=== PATIENT | male | born 1985 | race African-American/Black ===

== ENCOUNTER 2017-05-04 13:07 | Emergency (ER) | payer SELFPAY ==
[2017-05-04] MEDS ORDERED: Aspirin Low Dose CHEW TAB* 81 MG PO ONE (14:01)
--- NOTE | 2017-05-04 14:22 | RAD ---
HISTORY: Chest pain COMPARISONS: July 01, 2014 VIEWS:1: Single frontal portable view of the chest at 2:20 PM FINDINGS: LINES AND TUBES: None. CARDIOMEDIASTINAL SILHOUETTE: The cardiomediastinal silhouette is normal for portable technique. PLEURA: The costophrenic angles are sharp. No pleural abnormalities are noted. LUNG PARENCHYMA: The lungs are clear. ABDOMEN: The upper abdomen is clear. There is no subphrenic gas. BONES AND SOFT TISSUES: No bone or soft tissue abnormalities are noted. IMPRESSION: NO ACTIVE CARDIOPULMONARY DISEASE.
[2017-05-04 15:06] LABS: Hematocrit 45 % (42-52); Hemoglobin 14.6 g/dl (14.0-18.0); Mean Corpuscular HGB Conc 32 g/dl (31-36); Mean Corpuscular Hemoglobin 29 pg (27-31); Mean Corpuscular Volume 90 fL (80-94); Mean Platelet Volume 12 um3 (7.4-10.4); Red Cell Distribution Width 13 % (10.5-15); White Blood Count 8.9 10^3/ul (3.5-10.8)
[2017-05-04] MEDS ORDERED: Nitroglycerin TAB 0.4 MG* 0.4 MG TAB SL ONE (15:10)
[2017-05-04 15:22] LABS: Albumin 4.5 g/dL (3.2-5.2); BUN/Creatinine Ratio 13.2 (8-20); Calcium 9.4 mg/dL (8.6-10.3); EGFR African American 82.5 (>60); EGFR Non-African American 64.1 (>60); Globulin 4.4 g/dL (2-4); Potassium 4.1 mmol/L (3.5-5.0); Total Bilirubin 0.7 mg/dL (0.2-1.0); Total Protein 8.9 g/dL (6.4-8.9)
[2017-05-04 16:49] VITALS: BP 123/90
--- NOTE | 2017-05-17 15:15 | ED ---
Neymar Mcbride Benjamin, scribed for Rosalino Sanchez MD on 05/04/17 at 1438 . HPI Chest Pain - HPI Summary HPI Summary: 32yo male c/o sharp left anterior chest pain on and off since 2 days ago. Pt also reports pain radiating to left arm, left flank and left neck. Pt was smoking a cigarette at the time of onset. Pain was 7/10 initially but now its a 2/10 dull ache. Moving his arm does not affect his pain, and pt denies SOB, rash, or any recent stress. FHx of DM, prostate, lungs, liver CA, and CVA. Pt is a smoker. PT doesnt have a PCP and hasn't follow up wit [facility] doctor for a long time. - History of Current Complaint Chief Complaint: EDChestPainROMI Time Seen by Provider: 05/04/17 13:22 Hx Obtained From: Patient Onset/Duration: Started Days Ago - 2 days, Still Present Timing: Intermittent Initial Severity: Moderate Current Severity: Mild Pain Intensity: 8 Pain Scale Used: 0-10 Numeric Chest Pain Location: Left Anterior Chest Pain Radiates: Yes Chest Pain Radiates To:: Flank - left, Shoulder - left, Arm - left, Jaw - left Character: Dull/Aching - now, Sharp/Stabbing - at onset Aggravating Factor(s): Nothing Alleviating Factor(s): Nothing Associated Signs and Symptoms: Positive: Chest Pain. Negative: Shortness of Breath, Fever, Chills - Allergy/Home Medications Allergies/Adverse Reactions: Allergies Allergy/AdvReac Type Severity Reaction Status Date / Time Sulfamethoxazole Allergy Intermediate Stomach Verified 03/23/16 17:26 w/Trimethoprim Cramps [From Bactrim] Doxycycline Allergy Nausea Verified 03/23/16 17:26 PMH/Surg Hx/FS Hx/Imm Hx Respiratory History: Reports: Other Respiratory Problems/Disorders - BRONCHITIS Psychiatric History: Denies: Hx Eating Disorder, Hx of Violent Episodes Against Others - Immunization History Date of Tetanus Vaccine: Unknown Infectious Disease History: Denies: Traveled Outside the [place] in Last 30 Days - Family History Known Family History: Positive: Hypertension, Diabetes, Other - HLD, Kidney Failure. lung, prostate CA, CVA - Social History Occupation: Employed Full-time Lives: Alone Alcohol Use: Occasionally Alcohol Amount: depends on stress Substance Use Type: Reports: None Substance Use Comment - Amount & Last Used: used today Hx Tobacco Use: Yes - Smokes about a quarter pack per day. Smoking Status (MU): Current Every Day Smoker - smokes quarter pack per day Type: Cigarettes Amount Used/How Often: 1/2 PPD Length of Time of Smoking/Using Tobacco: 10YRS Have You Smoked in the Last Year: Yes Review of Systems Negative: Fever, Chills Negative: Erythema Negative: Sore Throat Negative: Cough Negative: Abdominal Pain, Nausea Negative: dysuria, hematuria Negative: Edema Negative: Rash Neurological: Other - negative - dizziness Psychological: Normal All Other Systems Reviewed And Are Negative: Yes Physical Exam Triage Information Reviewed: Yes Vital Signs On Initial Exam: Initial Vitals Temp Pulse Resp BP Pulse Ox 98.3 F 95 20 123/82 98 05/04/17 13:09 05/04/17 13:09 05/04/17 13:09 05/04/17 13:09 05/04/17 13:09 Vital Signs Reviewed: Yes Appearance: Positive: Well-Appearing, Pain Distress - mild, Obese. Negative: No Pain Distress Skin: Positive: Warm, Skin Color Reflects Adequate Perfusion Head/Face: Positive: Normal Head/Face Inspection Eyes: Positive: Conjunctiva Clear ENT: Positive: Normal ENT inspection Respiratory/Lung Sounds: Positive: Clear to Auscultation, Breath Sounds Present. Negative: Rales, Rhonchi, Stridor, Wheezes Cardiovascular: Positive: RRR, Pulses are Symmetrical in both Upper and Lower Extremities, Other - No reproducible tenderness in chest. Negative: Murmur Abdomen Description: Positive: Nontender, Soft. Negative: Distended, Guarding Musculoskeletal: Positive: Strength/ROM Intact. Negative: Edema Left, Edema Right Neurological: Positive: Sensory/Motor Intact, Alert, Oriented to Person Place, Time Psychiatric: Positive: Affect/Mood Appropriate Diagnostics - Vital Signs Vital Signs Temp Pulse Resp BP Pulse Ox 05/04/17 14:28 98.9 F 98 16 126/80 97 05/04/17 13:09 98.3 F 95 20 123/82 98 - Laboratory Result Diagrams: 05/04/17 14:44 05/04/17 14:44 Lab Statement: Any lab studies that have been ordered have been reviewed, and results considered in the medical decision making process. - Radiology CXR Xray Interpretation: No Acute Changes Radiology Interpretation Completed By: Radiologist - EKG 1317 Cardiac Rate: NL - 87bpm EKG Rhythm: Sinus Rhythm EKG Interpretation: normal early repol. pattern. No STEMI Chest Pain Course/Dx - Course Course Of Treatment: Reviewed pts medication and allergy lists. Discussed with Dr. Goldsmith (hospitalist) at 16:[address] Goldsmith will admit the pt. Pt wants to leave AMA. He understands the risks, including possible . - Diagnoses Provider Diagnoses: Chest pain of uncertain etiology, early repolarization pattern in heart - Provider Notifications Instructed by Provider To: Other - AMA Discharge - Discharge Plan Condition: Stable Disposition: AGAINST MEDICAL ADVICE Referrals: No Primary Care Phys,NOPCP [Primary Care Provider] - Additional Instructions: RETURN TO THE EMERGENCY DEPARTMENT FOR CHANGING OR WORSENING SYMPTOMS. The documentation as recorded by the Neymar guevara Benjamin accurately reflects the service I personally performed and the decisions made by Daniel to Jerry, MD.
== END 2017-05-04 16:51 | disposition left against medical advice (07) ==
LOC: ED 13:07
DX: R07.9 Chest pain, unspecified (principal); F17.210 Nicotine dependence, cigarettes, uncomplicated; Z53.21 Procedure and treatment not carried out due to patient leaving prior to being seen by health care provider
CPT/HCPCS: 36415; 71010; 80053; 83605; 84484; 85025; 93005; 99283; A9270-GY

== ENCOUNTER 2017-05-06 12:56 | Emergency (ER) | payer SELFPAY ==
[2017-05-06] MEDS ORDERED: Ketorolac INJ* 30 MG/ML 1 ML VIAL IV PUSH ONE (13:48)
[2017-05-06 14:10] LABS: Hematocrit 38 % (42-52); Hemoglobin 12.6 g/dl (14.0-18.0); Mean Corpuscular HGB Conc 33 g/dl (31-36); Mean Corpuscular Hemoglobin 29 pg (27-31); Mean Corpuscular Volume 88 fL (80-94); Mean Platelet Volume 12 um3 (7.4-10.4); Red Cell Distribution Width 13 % (10.5-15); White Blood Count 6.9 10^3/ul (3.5-10.8)
[2017-05-06 14:19] LABS: Calcium 8.8 mg/dL (8.6-10.3); EGFR Non-African American 65.3 (>60); Globulin 3.9 g/dL (2-4); Potassium 4.1 mmol/L (3.5-5.0); Total Bilirubin 0.3 mg/dL (0.2-1.0); Total Protein 7.9 g/dL (6.4-8.9)
--- NOTE | 2017-05-06 14:55 | RAD ---
Indication: Chest pain. Single frontal view of the chest performed at 1401 hours was reviewed. Comparison is made with previous exam dated May 04, 2017. No mediastinal shift is noted. Heart is of normal size and configuration. Lung clay appear clear. IMPRESSION: NO ACTIVE CARDIOPULMONARY DISEASE IS NOTED.
[2017-05-06 15:08] LABS: TSH (Thyroid Stimulating Horm) 2.61 mcIU/mL (0.34-5.60)
[2017-05-06] MEDS ORDERED: NS 0.9% 1000 ML* 1,000 ML IV ONE ×2 (15:11→15:47)
--- NOTE | 2017-05-06 18:15 | ED ---
Josh Mcbride Thomas, scribed for Darnell Banks MD on 05/06/17 at 1359 . HPI Chest Pain - HPI Summary HPI Summary: The pt is a 32 y/o M accompanied by presenting to the ED c/o sharp left anterior CP that began two days ago. The pain is intermittent, is described as sharp, and is rated 9/10. The pain is present when the patient takes deep breaths. The CP is not reproducible on palpation. The pain is alleviated by nothing. 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 Pt additionally c/o numbness in his L arm, nausea (with a metallic taste in my mouth), abdominal cramping, and night sweats. Pt denies SOB and vomiting. PMHx : previously healthy. PSHx: R hand surgery. 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 He was a patient at [facility] two days ago, but he left AMA because hospitals make me anxious. He denies symptoms of an URI in the last few weeks. - History of Current Complaint Chief Complaint: EDChestPainROMI Time Seen by Provider: 05/06/17 13:14 Hx Obtained From: Patient, Family/Sales Consultant - is present Onset/Duration: Started Days Ago - 2 days, Still Present Timing: Intermittent Pain Intensity: 9 Pain Scale Used: 0-10 Numeric Chest Pain Location: Left Anterior Character: Sharp/Stabbing Aggravating Factor(s): Deep Breaths Alleviating Factor(s): Nothing Associated Signs and Symptoms: Positive: Chest Pain, Numbness - L arm, Diaphoresis - night sweats, Nausea, Abdominal Pain - cramping. Negative: Shortness of Breath, Cough, Vomiting, Nasal Congestion, Sinus Discomfrot, Other : - NEG: chest congestion - Allergy/Home Medications Allergies/Adverse Reactions: Allergies Allergy/AdvReac Type Severity Reaction Status Date / Time Sulfamethoxazole Allergy Intermediate Stomach Verified 03/23/16 17:26 w/Trimethoprim Cramps [From Bactrim] Doxycycline Allergy Nausea Verified 03/23/16 17:26 PMH/Surg Hx/FS Hx/Imm Hx Previously Healthy: Yes Cardiovascular History: Denies: Hx Myocardial Infarction Respiratory History: Denies: Hx Cystic Fibrosis Psychiatric History: Denies: Hx Eating Disorder, Hx of Violent Episodes Against Others - Surgical History Surgery Procedure, Year, and Place: none - Immunization History Date of Tetanus Vaccine: Unknown Infectious Disease History: No Infectious Disease History: Denies: Traveled Outside the [place] in Last 30 Days - Family History Known Family History: Positive: Hypertension, Diabetes, Other - HLD, Kidney Failure - Social History Alcohol Use: Occasionally Alcohol Amount: depends on stress Substance Use Type: Reports: Marijuana Substance Use Comment - Amount & Last Used: used today Hx Tobacco Use: Yes - Smokes about a quarter pack per day, altough none since Smoking Status (MU): Current Every Day Smoker Type: Cigarettes Amount Used/How Often: 1/2 PPD Length of Time of Smoking/Using Tobacco: 10YRS Have You Smoked in the Last Year: Yes Review of Systems Positive: Skin Diaphoresis - night sweats. Negative: Fever Negative: Nasal Discharge Positive: Chest Pain - sharp, onset 2 days ago, left anterior, 9/10, worsened with deep breaths, not reproducible with palpation Negative: Shortness Of Breath, Cough, Other - NEG: chest congestion Positive: Abdominal Pain - cramping, Nausea. Negative: Vomiting Positive: Numbness - L arm All Other Systems Reviewed And Are Negative: Yes Physical Exam - Summary Physical Exam Summary: VITAL SIGNS: Reviewed. GENERAL: ~Patient is a well-developed and nourished male who is lying comfortable in the stretcher. ~Patient is not in any acute respiratory distress. HEAD AND FACE: No signs of trauma. ~No ecchymosis, hematomas or skull depressions. No sinus tenderness. EYES: PERRLA, EOMI x 2, No injected conjunctiva, no nystagmus. EARS: Hearing grossly intact. Ear canals and tympanic membranes are within normal limits. MOUTH: Oropharynx within normal limits. NECK: Supple, trachea is midline, no adenopathy, no JVD, no carotid bruit, no c- spine tenderness, neck with full ROM. CHEST: Symmetric, no tenderness at palpation LUNGS: Clear to auscultation bilaterally. No wheezing or crackles. CVS: Regular rate and rhythm, S1 and S2 present, no murmurs or gallops appreciated. ABDOMEN: Soft, non-tender. No signs of distention. No rebound no guarding, and no masses palpated. Bowel sounds are normal. EXTREMITIES: FROM in all major joints, no edema, no cyanosis or clubbing. NEURO: Alert and oriented x 3. No acute neurological deficits. Speech is normal and follows commands. SKIN: Dry and warm Triage Information Reviewed: Yes Vital Signs On Initial Exam: Initial Vitals Temp Pulse Resp BP Pulse Ox 97.2 F 88 20 137/86 100 05/06/17 13:00 05/06/17 13:00 05/06/17 13:00 05/06/17 13:00 05/06/17 13:00 Vital Signs Reviewed: Yes - [place] Coma Scale Coma Scale Total: 15 Diagnostics - Vital Signs Vital Signs Temp Pulse Resp BP Pulse Ox 05/06/17 13:42 68 100 05/06/17 13:41 97.7 F 62 20 134/83 100 05/06/17 13:00 97.2 F 88 20 137/86 100 - Laboratory Lab Results: Lab Results 05/06/17 05/06/17 05/06/17 Range/Units 13:50 13:50 13:50 WBC 6.9 (3.5-10.8) 10^3/ul RBC 4.30 (4.0-5.4) 10^6/ul Hgb 12.6 L (14.0-18.0) g/dl Hct 38 L (42-52) % MCV 88 (80-94) fL MCH 29 (27-31) pg MCHC 33 (31-36) g/dl RDW 13 (10.5-15) % Plt Count 146 L (150-450) 10^3/ul MPV 12 H (7.4-10.4) um3 Neut % (Auto) 56.6 (38-83) % Lymph % (Auto) 27.3 (25-47) % Lamar % (Auto) 8.9 (1-9) % Eos % (Auto) 6.8 H (0-6) % Baso % (Auto) 0.4 (0-2) % Absolute Neuts (auto) 3.9 (1.5-7.7) 10^3/ul Absolute Lymphs (auto) 1.9 (1.0-4.8) 10^3/ul Absolute Monos (auto) 0.6 (0-0.8) 10^3/ul Absolute Eos (auto) 0.5 (0-0.6) 10^3/ul Absolute Basos (auto) 0 (0-0.2) 10^3/ul Absolute Nucleated RBC 0 10^3/ul Nucleated RBC % 0.1 D-Dimer, Quantitative < 200 (Less Than 230) ng/mL Sodium 134 (133-145) mmol/L Potassium 4.1 (3.5-5.0) mmol/L Chloride 103 (101-111) mmol/L Carbon Dioxide 26 (22-32) mmol/L Anion Gap 5 (2-11) mmol/L BUN 14 (6-24) mg/dL Creatinine 1.27 H (0.67-1.17) mg/dL Est GFR ( Amer) 84.0 (>60) Est GFR (Non-Af Amer) 65.3 (>60) BUN/Creatinine Ratio 11.0 (8-20) Glucose 95 (70-100) mg/dL Lactic Acid (0.5-2.0) mmol/L Calcium 8.8 (8.6-10.3) mg/dL Total Bilirubin 0.30 (0.2-1.0) mg/dL AST 27 (13-39) U/L ALT 19 (7-52) U/L Alkaline Phosphatase 71 (34-104) U/L Total Creatine Kinase 744 H (10-223) U/L CK-MB (CK-2) 4.9 (0.6-6.3) ng/mL Troponin I 0.00 (<0.04) ng/mL B-Natriuretic Peptide ( - 100) pg/mL Total Protein 7.9 (6.4-8.9) g/dL Albumin 4.0 (3.2-5.2) g/dL Globulin 3.9 (2-4) g/dL Albumin/Globulin Ratio 1.0 (1-3) TSH 2.61 (0.34-5.60) mcIU/mL 05/06/17 05/06/17 05/06/17 Range/Units 13:50 13:50 17:00 WBC (3.5-10.8) 10^3/ul RBC (4.0-5.4) 10^6/ul Hgb (14.0-18.0) g/dl Hct (42-52) % MCV (80-94) fL MCH (27-31) pg MCHC (31-36) g/dl RDW (10.5-15) % Plt Count (150-450) 10^3/ul MPV (7.4-10.4) um3 Neut % (Auto) (38-83) % Lymph % (Auto) (25-47) % Lamar % (Auto) (1-9) % Eos % (Auto) (0-6) % Baso % (Auto) (0-2) % Absolute Neuts (auto) (1.5-7.7) 10^3/ul Absolute Lymphs (auto) (1.0-4.8) 10^3/ul Absolute Monos (auto) (0-0.8) 10^3/ul Absolute Eos (auto) (0-0.6) 10^3/ul Absolute Basos (auto) (0-0.2) 10^3/ul Absolute Nucleated RBC 10^3/ul Nucleated RBC % D-Dimer, Quantitative (Less Than 230) ng/mL Sodium (133-145) mmol/L Potassium (3.5-5.0) mmol/L Chloride (101-111) mmol/L Carbon Dioxide (22-32) mmol/L Anion Gap (2-11) mmol/L BUN (6-24) mg/dL Creatinine (0.67-1.17) mg/dL Est GFR ( Amer) (>60) Est GFR (Non-Af Amer) (>60) BUN/Creatinine Ratio (8-20) Glucose (70-100) mg/dL Lactic Acid 0.8 (0.5-2.0) mmol/L Calcium (8.6-10.3) mg/dL Total Bilirubin (0.2-1.0) mg/dL AST (13-39) U/L ALT (7-52) U/L Alkaline Phosphatase (34-104) U/L Total Creatine Kinase (10-223) U/L CK-MB (CK-2) (0.6-6.3) ng/mL Troponin I 0.00 (<0.04) ng/mL B-Natriuretic Peptide 61 ( - 100) pg/mL Total Protein (6.4-8.9) g/dL Albumin (3.2-5.2) g/dL Globulin (2-4) g/dL Albumin/Globulin Ratio (1-3) TSH (0.34-5.60) mcIU/mL Result Diagrams: 05/06/17 13:50 05/06/17 13:50 Lab Statement: Any lab studies that have been ordered have been reviewed, and results considered in the medical decision making process. - Radiology CXR Xray Interpretation: No Acute Changes - No active cardiopulmonary disease is noted. Radiology Interpretation Completed By: Radiologist - EKG 13:06 Cardiac Rate: NL - 65 BPM EKG Interpretation: Sinus rhythm. no ST elevations. Early repolarization. EKG Comparison: No Significant Change - in early repolarization in comparison to 05/04/17, 07/01/14, 11/02/13, and 07/24/13. Re-Evaluation - Re-Evaluation Second Eval Re-Evaluation Time: 17:30 Change: Improved Comment: The pain has subsided. Chest Pain Course/Dx - Course Assessment/Plan: The pt is a 32 y/o M accompanied by presenting to the ED c /o sharp left anterior CP that began two days ago. The pain is intermittent, is described as sharp, and is rated 9/10. The pain is present when the patient takes deep breaths. The CP is not reproducible on palpation. The pain is alleviated by nothing. 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 Pt additionally c/o numbness in his L arm, nausea (with a metallic taste in my mouth), abdominal cramping, and night sweats. Pt denies SOB and vomiting. PMHx : previously healthy. PSHx: R hand surgery. 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 He was a patient at [facility] two days ago, but he left AMA because hospitals make me anxious. He denies symptoms of an URI in the last few weeks. The test results are without significant abnormality except a slight anemia. Creatinine is 1.27, which is his baseline. Creatine kinase is 744. Troponin I is 0.00 and Troponin II is 0.00. In the ER course the patient was given Toradol for the pain, which subsided the sharp chest pains. The patient was given IV fluids. After these medications and hydration, the symptoms resolved. I do not believe that we are dealing with ACS because the troponin is negative,the EKG shows no St elevations , and the CP has subsided with toradol. I do not believe that the patient has a pulmonary embolism because the patient is not hypoxic and not tachycardic. I do not believe that the patient has an acute pericarditis because the EKGs are similar since 07/24/13. The patient is asymptomatic, without complaints, and eating and drinking; therefore, the patient will be discharged home. He is hemodynamically stable and alert and oriented x3. He will also f/u with PCP to recheck BP. I discussed all the findings and test results with the patient. Patient was instructed to return to the emergency room immediately if any of the symptoms return or worsens. Plan of care was discussed with the patient and understands and agrees. All questions were answered at patient satisfaction. There were no further complaints or concerns. Lung exam before discharge: CTA B /L. Good air exchange. No wheezing or crackles heard. CVS: S1 and S2 present. No murmurs appreciated. Patient is alert and oriented x 3. Patient is hemodynamically stable. Patient will be discharged home with follow up PCP in the next 2-3 days - Chest Pain Differential Diagnosis/HQI/PQRI: Acute MN, ACS, Angina, CHF, Chest Wall, GI Disease, Lower Respiratory Infection - Diagnoses Provider Diagnoses: Chest pain Discharge - Discharge Plan Condition: Stable Disposition: HOME Referrals: [facility]FERR[facility] [Outside] - 3 Days The documentation as recorded by the Josh guevara Thomas accurately reflects the service I personally performed and the decisions made by me, Darnell Banks MD.
[2017-05-06 18:53] VITALS: BP 128/83
== END 2017-05-06 18:53 | disposition home or self-care (01) ==
LOC: ED 12:56
DX: R07.9 Chest pain, unspecified (principal); R10.9 Unspecified abdominal pain; R11.0 Nausea
CPT/HCPCS: 36415; 71010; 80053; 82550; 82553; 83605; 83880; 84443; 84484; 85025; 85379; 93005; 96374; 99284; J1885

== ENCOUNTER 2017-11-19 15:47 | Emergency (ER) | payer SELFPAY ==
[2017-11-19 15:57] VITALS: BP 145/92
--- NOTE | 2017-11-19 16:29 | UC ---
Throat Pain/Nasal Ankit HPI - HPI Summary HPI Summary: Pain and swelling in throat, chills, fatigue, fever starting 2-3 days ago. - History of Current Complaint Hx Obtained From: Patient Onset/Duration: Gradual Onset, Lasting Days Severity: Moderate Pain Intensity: 8 Cough: None Associated Signs & Symptoms: Positive: Fever. Negative: Nasal Discharge, Vomiting, Rash <Shonda Schwab - Last Filed: 11/19/17 16:32> <Ellen Hughes - Last Filed: 11/19/17 16:37> - History of Current Complaint Chief Complaint: UCGeneralIllness Stated Complaint: SWOLLEN GLANDS Time Seen by Provider: 11/19/17 15:59 - Allergies/Home Medications Allergies/Adverse Reactions: Allergies Allergy/AdvReac Type Severity Reaction Status Date / Time doxycycline Allergy Nausea And Verified 11/19/17 15:58 Vomiting sulfamethoxazole Allergy Nausea And Verified 11/19/17 15:58 [From Bactrim] Vomiting trimethoprim [From Bactrim] Allergy Nausea And Verified 11/19/17 15:58 Vomiting PMH/Surg Hx/FS Hx/Imm Hx Previously Healthy: Yes Cardiovascular History: Hypertension - Surgical History Surgical History: None Surgery Procedure, Year, and Place: none - Family History Known Family History: Positive: Hypertension, Diabetes, Other - HLD, Kidney Failure - Social History Lives: With Family Alcohol Use: Occasionally Alcohol Amount: depends on stress Substance Use Type: None, Marijuana Substance Use Comment - Amount & Last Used: used today Smoking Status (MU): Former Smoker Type: Cigarettes Amount Used/How Often: 1/2 PPD Length of Time of Smoking/Using Tobacco: 10YRS Have You Smoked in the Last Year: Yes Household Exposure Type: Cigarettes - Immunization History Most Recent Influenza Vaccination: unknown Most Recent Tetanus Shot: unknown Most Recent Pneumonia Vaccination: unknown <Shonda Schwab - Last Filed: 11/19/17 16:32> Review of Systems Constitutional: Fever, Chills, Fatigue Skin: Negative Eyes: Negative ENT: Sore Throat Respiratory: Negative Cardiovascular: Negative Gastrointestinal: Negative Genitourinary: Negative Motor: Negative Neurovascular: Negative Musculoskeletal: Negative Neurological: Negative Psychological: Negative Is Patient Immunocompromised?: No All Other Systems Reviewed And Are Negative: Yes <Shonda Schwab - Last Filed: 11/19/17 16:32> Physical Exam Triage Information Reviewed: Yes Appearance: Pain Distress - mild with swallowing, Obese Vital Signs: Initial Vital Signs Temp 99.4 F 11/19/17 15:53 Pulse 122 11/19/17 15:53 Resp 20 11/19/17 15:53 BP 145/92 11/19/17 15:53 Pulse Ox 100 11/19/17 15:53 Vital Signs Reviewed: Yes Eye Exam: Normal Eyes: Positive: Conjunctiva Clear ENT: Positive: Hearing grossly normal, Pharyngeal erythema, TMs normal, Tonsillar swelling - marked, nearly touching in back, Other - marked hot potato voice Dental Exam: Normal Neck: Positive: Supple, Nontender, Enlarged Nodes @ - tonsillar Respiratory Exam: Normal Respiratory: Positive: Chest non-tender, Lungs clear, Normal breath sounds, No respiratory distress, No accessory muscle use Cardiovascular: Positive: Tachycardia Musculoskeletal Exam: Normal Neurological Exam: Normal Neurological: Positive: Alert Psychological Exam: Normal Skin Exam: Normal <Shonda Schwab - Last Filed: 11/19/17 16:32> Vital Signs: Initial Vital Signs Temp 99.4 F 11/19/17 15:53 Pulse 122 11/19/17 15:53 Resp 20 11/19/17 15:53 BP 145/92 11/19/17 15:53 Pulse Ox 100 11/19/17 15:53 <Ellen Hughes - Last Filed: 11/19/17 16:37> Diagnostics - Laboratory Diagnostic Studies Completed/Ordered: RST positive <Shonda Schwab - Last Filed: 11/19/17 16:32> Throat Pain/Nasal Course/Dx - Differential Dx/Diagnosis Provider Diagnoses: Strep tonsillitis <Shonda Schwab - Last Filed: 11/19/17 16:32> Discharge <Shonda Schwab - Last Filed: 11/19/17 16:32> <Ellen Hughes - Last Filed: 11/19/17 16:37> - Discharge Plan Condition: Stable Disposition: HOME Prescriptions: Amoxicillin PO (*) [Amoxicillin 400 MG/5 ML SUSP*] 800 mg PO BID #200 ml Patient Education Materials: Strep Throat (ED) Referrals: No Primary Care Phys,NOPCP [Primary Care Provider] - Additional Instructions: You can take 400-500mg ibuprofen either as children's liquid or as children's chewable. When you can swallow more normally you can switch to adult formulations. As we discussed, it may take many weeks or even months for your tonsils to fully return to normal. However, you should see clear improvement in the next few days and you should be able to swallow and speak more normally in that time. If not, and especially if you worsen, please come back for a recheck. Attestation Statement User Type: Provider - I was available for consult. This patient was seen by the advanced practice provider. The patient was not presented to, seen by, or examined by me.-Kasi <Ellen Hughes - Last Filed: 11/19/17 16:37>
== END 2017-11-19 17:00 | disposition home or self-care (01) ==
LOC: UCEAST 15:47
DX: J03.00 Acute streptococcal tonsillitis, unspecified (principal); Z87.891 Personal history of nicotine dependence
CPT/HCPCS: 87651; 99212; G0463

== ENCOUNTER 2018-06-11 05:59 | Emergency (ER) | payer BC, OTHER ==
[2018-06-11] MEDS ORDERED: Tetan/Diph/Pertus SYR(Tdap)* 0.5 ML SYR(BOOSTRIX) use SYR IM ONE (06:58)
--- NOTE | 2018-06-11 07:23 | ED ---
Laceration/Wound HPI - HPI Summary HPI Summary: Patient is a 33-year-old male who presents emergency department for laceration to base of right thumb that occurred just prior to arrival. Patient states he cut hand on a food can. He is unaware of his last tetanus immunization. Symptoms are mild in severity. Touching wound makes symptoms worse. Rest makes symptoms better. Denies significant past medical history. - History of Current Complaint Stated Complaint: HAND LAC Time Seen by Provider: 06/11/18 06:54 Hx Obtained From: Patient Pain Intensity: 0 - Allergy/Home Medications Allergies/Adverse Reactions: Allergies Allergy/AdvReac Type Severity Reaction Status Date / Time doxycycline Allergy Nausea And Verified 06/11/18 06:04 Vomiting sulfamethoxazole Allergy Nausea And Verified 06/11/18 06:04 [From Bactrim] Vomiting trimethoprim [From Bactrim] Allergy Nausea And Verified 06/11/18 06:04 Vomiting PMH/Surg Hx/FS Hx/Imm Hx Previously Healthy: Yes Endocrine/Hematology History: Denies: Hx Diabetes, Hx Thyroid Disease Cardiovascular History: Denies: Hx Hypertension, Hx Myocardial Infarction Respiratory History: Reports: Other Respiratory Problems/Disorders - BRONCHITIS Denies: Hx Asthma, Hx Chronic Obstructive Pulmonary Disease (COPD), Hx Cystic Fibrosis GI History: Denies: Hx Ulcer Psychiatric History: Denies: Hx Eating Disorder, Hx of Violent Episodes Against Others - Surgical History Surgery Procedure, Year, and Place: none - Immunization History Date of Tetanus Vaccine: Unknown Infectious Disease History: No Infectious Disease History: Denies: Hx Hepatitis, Hx Human Immunodeficiency Virus (HIV), Traveled Outside the [place] in Last 30 Days - Family History Known Family History: Positive: Hypertension, Diabetes, Other - HLD, Kidney Failure - Social History Occupation: Employed Full-time Lives: With Family Alcohol Use: Occasionally Alcohol Amount: depends on stress Substance Use Type: Reports: None, Marijuana Substance Use Comment - Amount & Last Used: used today Hx Tobacco Use: Yes - Smokes about a quarter pack per day, altough none since Smoking Status (MU): Former Smoker Type: Cigarettes Amount Used/How Often: 1/2 PPD Length of Time of Smoking/Using Tobacco: 10YRS Have You Smoked in the Last Year: Yes Review of Systems Positive: Other - Laceration right hand All Other Systems Reviewed And Are Negative: Yes Physical Exam Triage Information Reviewed: Yes Vital Signs On Initial Exam: Initial Vitals Temp Pulse Resp BP Pulse Ox 97.9 F 66 18 141/88 99 06/11/18 06:02 06/11/18 06:02 06/11/18 06:02 06/11/18 06:02 06/11/18 06:02 Vital Signs Reviewed: Yes Appearance: Positive: Well-Appearing - Patient sitting on bed in no acute distress. Talkative and pleasant. Skin: Positive: Warm, Dry Head/Face: Positive: Normal Head/Face Inspection Eyes: Positive: Normal, EOMI Neck: Positive: Supple Musculoskeletal: Positive: Other - 3 cm, superficial, linear laceration noted to the base of the right thumb, lateral palmar aspect. Full range of motion of digit without bony tenderness. Neurological: Positive: Normal, CN Intact II-III Psychiatric: Positive: Affect/Mood Appropriate Procedures - Procedure Summary Procedure Summary: Laceration was cleaned with hibiclens and irrigated. Two steri strips were placed with good approximation. Sterile dressing placed. Patient tolerated. Diagnostics - Vital Signs Vital Signs Temp Pulse Resp BP Pulse Ox 06/11/18 06:02 97.9 F 66 18 141/88 99 - Laboratory Lab Statement: Any lab studies that have been ordered have been reviewed, and results considered in the medical decision making process. Laceration Repair Course/Dx - Course Course Of Treatment: Pt. presenting with superficial laceration. Tetanus updated. Pt. states he would prefer if wound could be steri stripped. Laceration repaired as noted above. 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 Advised to keep wound clean and dry. To f.u in the [facility] clinic. To return to ER for redness, swelling or drainage from wound. To avoid bending hand/thumb. Pt. understands and agrees with plan. - Differential Dx Differental Diagnoses: Laceration - Clinical Impression Provider Diagnoses: Superficial laceration Discharge - Sign-Out/Discharge Documenting (check all that apply): Patient Departure - Discharge Plan Condition: Good Disposition: HOME Patient Education Materials: Acute Wound Care (ED) Forms: *Work Release Referrals: [facility] [Outside] No Primary Care Phys,NOPCP [Primary Care Provider] - Additional Instructions: Schedule an appointment with the [facility] Keep wound clean and dry Avoid excessive bending/movement of thumb and hand Return to ER for redness, swelling, or drainage from wound - Billing Disposition and Condition Condition: GOOD Disposition: Home
[2018-06-11 07:45] VITALS: BP 123/92
== END 2018-06-11 07:41 | disposition home or self-care (01) ==
LOC: ED 05:59
DX: S61.011A Laceration without foreign body of right thumb without damage to nail, initial encounter (principal); W26.8XXA Contact with other sharp object(s), not elsewhere classified, initial encounter; Y92.9 Unspecified place or not applicable; Z23 Encounter for immunization; Z87.891 Personal history of nicotine dependence; Z88.3 Allergy status to other anti-infective agents; Z88.2 Allergy status to sulfonamides
CPT/HCPCS: 90471; 90715; 99282

== ENCOUNTER 2018-12-02 05:50 | Day surgery (SDC) | payer BC ==
[~2018-12-02 05:50] MED LIST: Buffered Lidocaine 1% SYRIN* 1 ML/SYRINGE INTRADERM ONE
[2018-12-02] MEDS ORDERED: Gabapentin CAP(*) 300 MG PO ONE (06:00)
[2018-12-02] MEDS ORDERED: Acetaminophen TAB* 325 MG PO ONE (06:00)
[2018-12-02] MEDS ORDERED: Lactated Ringers 1000 ML Bag* 1,000 ML IV SCH (06:00)
[2018-12-02] MEDS ORDERED: Gabapentin CAP(*) 300 MG ONE (06:03)
[2018-12-02] MEDS ORDERED: Acetaminophen TAB* 325 MG ONE (06:04)
[2018-12-02] MEDS ORDERED: ceFAZolin 1 GM in Dextrose (*) 1 GM/50 ML BAG IVPB ONE (06:04)
[2018-12-02] MEDS ORDERED: ceFAZolin 2 GM in NS PREMIX(*) 2 GM/100 ML BAG IVPB ONE (06:04)
[2018-12-02] MEDS ORDERED: Bupivacaine 0.5% W/EPI SDV* 30 ML VIAL ONE (06:56)
[2018-12-02] MEDS ORDERED: Midazolam* 1 MG/ML 2 ML VIAL (2 MG) ONE (07:08)
[2018-12-02] MEDS ORDERED: fentaNYL* 50 MCG/ML 2 ML VIAL (100 MCG VIAL) ONE ×2 (07:08→08:03)
[2018-12-02] MEDS ORDERED: Famotidine IV* 10 MG/ML 2 ML (20 mg) ONE (07:23)
[2018-12-02] MEDS ORDERED: Midazolam* 1 MG/ML 5 ML VIAL (5 MG) ONE (07:26)
[2018-12-02] MEDS ORDERED: Propofol* 10 MG/ML 20 ML BTL ONE ×2 (07:31→08:35)
[2018-12-02] MEDS ORDERED: Ketorolac INJ* 30 MG/ML 1 ML VIAL ONE (07:31)
[2018-12-02] MEDS ORDERED: Ondansetron INJ* 2 MG/ML VIAL ONE ×2 (07:31→12:20)
[2018-12-02] MEDS ORDERED: Dexamethasone IV* 4 MG/ML 1 ML (4 MG) ONE (07:31)
[2018-12-02] MEDS ORDERED: Succinylcholine* 20 MG/ML 10 ML VIAL ONE (07:31)
[2018-12-02] MEDS ORDERED: Lidocaine 2% PF * 5 ML VIAL ONE (07:31)
[2018-12-02] MEDS ORDERED: Cisatracurium* 2 MG/ML MDV 5 ML ONE ×2 (07:36→09:07)
[2018-12-02] MEDS ORDERED: HYDROmorphone INJ1* 1 MG/ML SYRINGE ONE (07:45)
[2018-12-02] MEDS ORDERED: Dexmedetomidine* 200 MCG/2 ML 2 ML VIAL ONE (08:03)
[2018-12-02] MEDS ORDERED: Scopolamine 1.5 mg* PATCH TRANSDERM PRN (09:10)
[2018-12-02] MEDS ORDERED: Acetaminophen TAB* 325 MG PO PRN (09:10)
[2018-12-02] MEDS ORDERED: fentaNYL* 50 MCG/ML 2 ML VIAL (100 MCG VIAL) IV PRN (09:10)
[2018-12-02] MEDS ORDERED: Levalbuterol 0.63MG/3ML NEB* UNIT OF USE INH PRN (09:10)
[2018-12-02] MEDS ORDERED: Naloxone* 0.4 MG/ML 1 ML VIAL IV PRN (09:10)
[2018-12-02] MEDS ORDERED: HYDROmorphone INJ1* 1 MG/ML SYRINGE IV PRN (09:10)
[2018-12-02] MEDS ORDERED: PROCHLORPERAZINE INJ 5 MG/ML 2 ML VIAL IV PRN (09:10)
[2018-12-02] MEDS ORDERED: Nalbuphine* 10 MG/ML 1 ML VIAL IV PRN (09:10)
[2018-12-02] MEDS ORDERED: Ondansetron INJ* 2 MG/ML VIAL IV PRN (09:10)
[2018-12-02] MEDS ORDERED: HYDROcodone/ACETAMIN 5-325 MG* 1 TAB PO PRN ×2 (09:10)
[2018-12-02] MEDS ORDERED: DiMENhydriNATE IV* 50 MG/ML VIAL IV PUSH PRN (09:10)
[2018-12-02] MEDS ORDERED: diPHENhydraMINE IV* 50 MG/ML 1 ml VIAL (BENADRYL) IV PRN (09:10)
[2018-12-02 12:29] VITALS: BP 122/83
--- NOTE | 2018-12-02 23:38 | OP ---
DATE OF OPERATION: 12/02/18 [facility] DATE OF : 83 SURGEON: Meño Gaspar MD. [employer] OPER[employer] ENGINEER: Mariann Murphy NP. ANESTHESIOLOGIST: Dr. Madison. ANESTHESIA: General with local. PRE-OP DIAGNOSIS: Left inguinal hernia. POST-OP DIAGNOSIS: Left indirect inguinal hernia. OPERATIVE PROCEDURE: Open repair with mesh of a left inguinal hernia, after unsuccessful total extraperitoneal laparoscopic attempt. WOUND CLASSIFICATION: I. IV FLUIDS: One liter of crystalloids. ESTIMATED BLOOD LOSS: Less than 50 cc. DRAINS: None. COMPLICATIONS: None. DESCRIPTION OF PROCEDURE: Written informed consent was obtained, the left groin was marked with indelible ink, and preoperative antibiotics were administered. The patient was taken to the operating room and placed in a supine position. Sequential compression devices and a warming blanket were applied. General anesthesia was administered. A Castle catheter was inserted. The abdomen and both groins and suprapubic area were prepped and draped in the usual sterile fashion. Time-out verification was completed. Initially, a small transverse incision was made just to the left of midline below the umbilicus and the anterior rectus fascia was identified and divided transversely. The underlying rectus muscle was then retracted laterally to expose the posterior sheath. This space was then developed inferiorly without difficulty and the spacemaker balloon was passed into the extraperitoneal space down to the pubic tubercle. The space was then insufflated with about 15 pumps of the hand pump under direct vision with good result in making the space. A 12 mm blunt port was inserted into the extraperitoneal space. This was insufflated to 12 mmHg. Under direct vision, two 5 mm ports were placed at the midline below the initial port placement. With care, the pubic tubercle and Degar ligament were identified on the left side. The anterior musculature laterally was identified with some blunt dissection out to the anterior iliac spine. At this point, I was able to identify the peritoneal edge. Laterally, we worked this and followed this medially until it appeared that it was a rather large indirect hernia sac that was covered with fat. After 30-minute period of time where I ended up dissecting the sac mainly laterally, had difficulty identifying the medial aspect and encircling the sac as it appeared to be somewhat wide based. The spermatic cord and its contents were protected from injury, and I also identified the epigastric vessels and these were protected from injury throughout. After approximately 45 minutes of attempting to reduce the hernia sac and with my concern that I was not able to identify more medially the peritoneal edge, I made a decision to abort the laparoscopic approach and proceed with an open approach. The hemostasis was assured in the extraperitoneal space and this was desulfated and all three ports removed. Marcaine 0.25% was infiltrated in the left groin and an oblique incision was made and carried down to the subcutaneous tissue. Cuco fascia was divided. The external oblique aponeurosis and external ring were identified and the external oblique aponeurosis was opened in the direction of its fibers. The spermatic cord and its contents were encircled with one quarter-inch Alvarado drain at the pubic tubercle. We carefully identified the spermatic cord in its usual place. Here, we then proceeded to dissect free of a rather large indirect inguinal hernia sac which also had fat within the [place]aca and it was somewhat difficult to completely identify from the spermatic cord, but this was achieved, however, up into the internal ring and reduced subsequently without difficulty. A rent was made into the peritoneal sac and this was closed with running 3-0 Vicryl suture. There was some weakness in the direct space, but no true direct space hernia. Next, the Covidien ProGrip precut mesh was then placed and sutured to the pubic tubercle with an 0 Vicryl suture. It was then attached to the conjoint tendon superiorly, the musculature laterally and inguinal ligament inferiorly. I used several interrupted 0 Vicryl sutures to adhere this to the musculature. At the completion of the placement, the mesh showed nice reconstruction of the internal ring without wrinkling or tension. Hemostasis was assured and additional Marcaine was infiltrated. The external oblique aponeurosis was closed with running 3-0 Vicryl suture. Cuco fascia was closed with running 3-0 Vicryl suture. The skin was approximated with subcuticular 4-0 Vicryl suture. Steri-Strips and sterile dressings were applied. Likewise, the anterior rectus fascia at the umbilical incision was closed with interrupted 0 Vicryl suture. The laparoscopic incisions were also closed subcuticularly with 4-0 Vicryl suture. Steri-Strips were applied. The patient tolerated the procedure well, was taken to recovery room in stable condition. [id number]/[facility] #: [id number] RITESH
[2018-12-05] MEDS ORDERED: Scopolamine PATCH Remove* 1 NOTE MISC PATCH OFF ONE (09:11)
== END 2018-12-02 12:38 | disposition home or self-care (01) ==
LOC: OR 05:50
PROVIDERS: ATTEND Surgery
DX: K40.90 Unilateral inguinal hernia, without obstruction or gangrene, not specified as recurrent (principal); Z53.31 Laparoscopic surgical procedure converted to open procedure; Z72.0 Tobacco use; Z68.38 Body mass index [BMI] 38.0-38.9, adult
CPT/HCPCS: A9270-GY; J0330; J0690; J1100; J1170; J1885; J2250; J2405; J2704; J3010

== ENCOUNTER 2019-03-27 13:05 | Emergency (ER) | payer BC ==
[2019-03-27 14:32] VITALS: BP 136/83
--- NOTE | 2019-03-27 14:49 | ED ---
Skin Complaint - HPI Summary HPI Summary: Patient is a 34-year-old male who presents emergency department for puncture wound to right foot that occurred today. Patient states he was carrying [employer] utensils sacral when he accidentally dropped a grilling for that punctured his right foot. Patient states that he was wearing sandals but for did not go through sandals. Patient states that fork was clean. Patient states there was blood squirting out of his foot. He typically pressure on wounds and bleeding eventually stopped. Patient states his last tetanus immunization was within one year. - History of Current Complaint Chief Complaint: EDLacSutureRecheck Time Seen by Provider: 03/27/19 14:03 Stated Complaint: LEFT FOOT LACERATION Hx Obtained From: Patient Pain Intensity: 0 Pain Scale Used: 0-10 Numeric - Allergy/Home Medications Allergies/Adverse Reactions: Allergies Allergy/AdvReac Type Severity Reaction Status Date / Time doxycycline Allergy Nausea And Verified 03/27/19 13:17 Vomiting sulfamethoxazole Allergy Nausea And Verified 03/27/19 13:17 [From Bactrim] Vomiting trimethoprim [From Bactrim] Allergy Nausea And Verified 03/27/19 13:17 Vomiting NITRILE GLOVES Allergy WITH HEAT Uncoded 12/02/18 06:23 EXPOSURE- SWELLING PMH/Surg Hx/FS Hx/Imm Hx Previously Healthy: Yes Endocrine/Hematology History: Denies: Hx Diabetes, Hx Thyroid Disease Cardiovascular History: Denies: Hx Hypertension, Hx Myocardial Infarction, Other Cardiovascular Problems/Disorders Respiratory History: Denies: Hx Asthma, Hx Chronic Obstructive Pulmonary Disease (COPD), Hx Cystic Fibrosis, Other Respiratory Problems/Disorders GI History: Denies: Hx Ulcer, Other GI Disorders History: Denies: Other Problems/Disorders Musculoskeletal History: Denies: Other Musculoskeletal History Sensory History: Denies: Hx Contacts or Glasses, Hx Hearing Aid Opthamlomology History: Denies: Hx Contacts or Glasses Neurological History: Denies: Other Neuro Impairments/Disorders Psychiatric History: Denies: Hx Eating Disorder, Hx of Violent Episodes Against Others - Surgical History Surgery Procedure, Year, and Place: none Hx Anesthesia Reactions: No - Immunization History Date of Tetanus Vaccine: Unknown Infectious Disease History: No Infectious Disease History: Denies: Hx Hepatitis, Hx Human Immunodeficiency Virus (HIV), Traveled Outside the [place] in Last 30 Days - Family History Known Family History: Positive: Hypertension, Diabetes, Other - HLD, Kidney Failure - Social History Occupation: Employed Full-time Lives: With Family Alcohol Use: Occasionally Alcohol Amount: SOCIALLY- 2TIMES PER MONTH Substance Use Type: Reports: Marijuana Substance Use Comment - Amount & Last Used: MARIJUANA- MULITPLE TIMES DAILY Hx Tobacco Use: Yes - Smokes about a quarter pack per day, altough none since Smoking Status (MU): Former Smoker Type: Cigarettes Amount Used/How Often: 1-3 CIGARETTES PER DAY X 13 YEARS- ON AND OFF Length of Time of Smoking/Using Tobacco: 10YRS Have You Smoked in the Last Year: Yes Review of Systems Positive: Other - puncture wound to right distal foot. Neurological: Negative Negative: Weakness, Paresthesia, Numbness All Other Systems Reviewed And Are Negative: Yes Physical Exam Triage Information Reviewed: Yes Vital Signs On Initial Exam: Initial Vitals Temp Pulse Resp BP Pulse Ox 97.8 F 83 16 131/85 97 03/27/19 13:06 03/27/19 13:06 03/27/19 13:06 03/27/19 13:06 03/27/19 13:06 Vital Signs Reviewed: Yes Appearance: Positive: Well-Appearing Skin: Positive: Warm, Dry Head/Face: Positive: Normal Head/Face Inspection Eyes: Positive: Normal, EOMI Neck: Positive: Supple Musculoskeletal: Positive: Other - Small puncute wound noted to right distal foot on dorsal aspect. No active bleeding. No bony tenderness. Dirt on foot. Neurological: Positive: Normal, CN Intact II-III Psychiatric: Positive: Affect/Mood Appropriate Diagnostics - Vital Signs Vital Signs Temp Pulse Resp BP Pulse Ox 03/27/19 14:31 98.3 F 81 18 136/83 98 03/27/19 13:06 97.8 F 83 16 131/85 97 - Laboratory Lab Statement: Any lab studies that have been ordered have been reviewed, and results considered in the medical decision making process. Course/Dx - Course Course Of Treatment: Patient presenting with puncture wound to right foot. Bleeding has been controlled. The wound was cleaned with Hibiclens and normal saline and pressure dressing placed. Given foot was dirty and suspect that occurred doors will prophylactically cover with Keflex. Advised to elevate and apply cool compresses. To leave dressing in place until tomorrow. Tylenol or Motrin for pain as directed. Follow-up with the [facility] for wound check. Return to the ER for redness, swelling or drainage from wound. Patient understands and agrees with plan. - Diagnoses Provider Diagnoses: Puncture wound Discharge - Sign-Out/Discharge Documenting (check all that apply): Patient Departure Patient Received Moderate/Deep Sedation with Procedure: No - Discharge Plan Condition: Improved Disposition: HOME Prescriptions: Cephalexin CAP* [Keflex CAP*] 500 mg PO BID #20 cap Patient Education Materials: Puncture Wound (ED) Referrals: [facility] [address] [Outside] Additional Instructions: Follow up with the [facility] Keep wound clean and dry Ice and elevate intermittently Tylenol or Motrin for pain as directed Return to ER for redness, swelling, drainage from wound - Billing Disposition and Condition Condition: IMPROVED Disposition: Home
== END 2019-03-27 14:31 | disposition home or self-care (01) ==
LOC: ED 13:05
DX: S91.331A Puncture wound without foreign body, right foot, initial encounter (principal); W26.8XXA Contact with other sharp object(s), not elsewhere classified, initial encounter; Y92.9 Unspecified place or not applicable; Z88.1 Allergy status to other antibiotic agents; Z88.2 Allergy status to sulfonamides; Z91.048 Other nonmedicinal substance allergy status; Z72.0 Tobacco use
CPT/HCPCS: 99282